=== PATIENT | female | born 2000 | race Caucasian/White ===

== ENCOUNTER 2024-01-29 15:23 | Emergency (ER) | payer OTHER ==
[~2024-01-29] VITALS: Ht 154.9 cm; Wt 50.6 kg
[2024-01-29 15:26] VITALS: BP 128/69; TEMP 97.4; O2SAT 99
[2024-01-29] MEDS: NAPROXEN 250 MG TAB PO ONE (18:33)
[2024-01-29] MEDS ORDERED: NAPR-1405 PO (18:35)
== END 2024-01-29 18:47 | disposition home or self-care (01) ==
LOC: M ED 15:23
DX: M23.91 Unspecified internal derangement of right knee (principal); Z88.0 Allergy status to penicillin

== ENCOUNTER → 2025-01-18 | Outpatient (CLI) | payer OTHER ==
[~2025-01-18] MED LIST: NAPR-1405 PO; PROHANCE 279.3MG/ML 5ML VIAL ONE
== END ==
LOC: M PLAIMG 07:27
PROVIDERS: ATTEND General Practice
DX: R89.1 Abnormal level of hormones in specimens from other organs, systems and tissues (principal)
CPT/HCPCS: 70553; A9579